=== PATIENT | female | born 1945 | race Caucasian/White ===

== ENCOUNTER 2020-12-12 11:38 | Emergency (ER) | payer MEDICARE ==
[2020-12-12 11:53] VITALS: BP 122/72; PULSE 66; O2SAT 99
--- NOTE | 2020-12-12 12:00 | ERPHSYRPT ---
- History of Present Illness Time Seen by Provider: 12/12/20 11:43 Source: patient Exam Limitations: no limitations Patient Subjective Stated Complaint: rash Triage Nursing Assessment: pt to ED c/o itching rash to upper L chest. states she noticed 3-4 dots of red rash on chest, attempted to put skin cancer topical medication on area and it seemed to worsen over few days. first noticed rash about 1 week ago but has gotten worse. denies pain at this time but states area is itching and burning. Physician History: 75 years old female with a history of skin cancers presented in the ER with chief complaint of rash anterior left chest started almost a week ago with few bumps and gradually spreading on the anterior chest, crossing midline to the right. She has been applying topical cancer medication with no relief but actually getting worse. Patient report burning and itching which does help with the applying Benadryl cream. No discharge. No vesicles. No fever or chills reported. Timing/Duration: week(s) (1), gradual onset, worse Quality: burning, itchy Severity: moderate Location: torso Possible Causes: no cause identified Modifying Factors: Improves With: antihistamine Associated Symptoms: rash Allergies/Adverse Reactions: latex Allergy (Intermediate, Verified 12/12/20 11:53) Hives nitrofurantoin macrocrystalline [From Macrodantin] Allergy (Mild, Verified 12/12/20 11:53) Rash Penicillins Allergy (Mild, Verified 12/12/20 11:53) Rash Home Medications: Aspirin 81 gm Chew [Baby Aspirin 81 mg Chew] 81 mg PO DAILY 02/05/14 [History] Benazepril HCl 10 mg [Lotensin 10 MG] 10 mg PO DAILY 02/05/14 [History] Biotin 1 mg PO DAILY 02/05/14 [History] Bupropion HCl 150 mg Sr [Wellbutrin SR 150 MG] 150 mg PO DAILY 02/05/14 [History] Butalb/Acetaminophen/Caffeine [Rgdhfs-Aziowkie-Vdza 50-325-40] 1 each PO UD PRN 02/05/14 [History] Calcium Carbonate/Vitamin D3 [Calcium 1,000 + D3 Caplet] 1 each PO DAILY 02/05/14 [History] Diphenhydramine HCl 25 mg [Benadryl 25 mg Capsule] 25 mg PO HS 02/05/14 [History] Lysine 500 mg PO UD 02/05/14 [History] Magnesium 1,000 mg PO DAILY 02/05/14 [History] Magnesium Chloride 64 mg [Slow-Mag 64 MG] 2 tab PO DAILY 02/05/14 [History] Mycophenolate Sodium [Myfortic] 180 mg PO DAILY 02/05/14 [History] Nebivolol HCl [Bystolic] 10 mg PO DAILY 02/05/14 [History] Omeprazole [Prilosec] 40 mg PO DAILY 02/05/14 [History] Rosuvastatin Calcium [Crestor] 1 tab PO DAILY 02/05/14 [History] Spironolactone 50 mg PO DAILY 02/05/14 [History] Sulfamethoxazole/Trimethoprim [Sulfamethoxazole-Tmp Ds Tablet] 400 mg PO UD [History] Tacrolimus [Prograf] 1 mg PO BID 02/05/14 [History] Zolpidem Tartrate [Ambien] 5 mg PO HS PRN 02/05/14 [History] Hx Tetanus, Diphtheria Vaccination/Date Given: Yes Hx Influenza Vaccination/Date Given: Yes Hx Pneumococcal Vaccination/Date Given: Yes (2010) Immunizations Up to Date: Yes Travel Risk - International Travel Have you traveled outside of the country in past 3 weeks: No - Coronavirus Screening Are you exhibiting any of the following symptoms?: No Close contact with a COVID-19 positive Pt in past 14-21 Days: No - Vaccine Status Have you recieved a Covid-19 vaccination: Yes [employer]: Moderna - Vaccination Dates Date of 2cond Vaccination (if applicable): Aug - Review of Systems Constitutional: No Symptoms Eyes: No Symptoms Ears, Nose, & Throat: No Symptoms Respiratory: No Symptoms Cardiac: No Symptoms Abdominal/Gastrointestinal: No Symptoms Genitourinary Symptoms: No Symptoms Musculoskeletal: No Symptoms Skin: Pruritis, Rash, Skin Lesions Neurological: No Symptoms Psychological: No Symptoms Endocrine: No Symptoms - Past Medical History Pertinent Past Medical History: Yes Neurological History: Migraines ENT History: No Pertinent History Cardiac History: Angina, High Cholesterol, Hypertension Respiratory History: No Pertinent History Endocrine Medical History: No Pertinent History Musculoskeletal History: Fractures, Osteoarthritis GI Medical History: GERD History: Renal Disease Psycho-Social History: Depression Female Reproductive Disorders: No Pertinent History Other Medical History: FX CLAVICLE A CHILD. RIGHT KIDNEY TRANSPLANT 2007 DUE TO POLYCYSTIC DISEASE. SURGERY RIGHT 1ST MCP JOINT D/T OA. CATARACT SX LEFT. skin cancer - Past Surgical History Past Surgical History: Yes Neuro Surgical History: No Pertinent History Cardiac: Cardiac Catheterization Respiratory: No Pertinent History Gastrointestinal: No Pertinent History Genitourinary: Kidney Transplant Musculoskeletal: No Pertinent History, Orthopedic Surgery Female Surgical History: Hysterectomy Other Surgical History: bilateral oopherectomy. right kidney transplant 2006, right hand bone reconstruction at thumb joint - Social History Smoking Status: Former smoker How long have you smoked: 12 years Exposure to second hand smoke: No Drug Use: none Patient Lives Alone: No - Female History Hx Now: No - Nursing Vital Signs Nursing Vital Signs: Initial Vital Signs Temperature 97.2 F 12/12/20 11:45 Pulse Rate 66 12/12/20 11:45 Respiratory Rate 18 12/12/20 11:45 Blood Pressure 122/72 12/12/20 11:45 O2 Sat by Pulse Oximetry 99 12/12/20 11:45 Pain Scale Pain Intensity 0 - Physical Exam General Appearance: no apparent distress, alert Eye Exam: PERRL/EOMI Ears, Nose, Throat Exam: normal ENT inspection Neck Exam: normal inspection, supple, full range of motion Respiratory Exam: normal breath sounds, lungs clear, No chest tenderness Cardiovascular Exam: regular rate/rhythm, normal heart sounds Back Exam: normal inspection Extremity Exam: normal inspection, normal range of motion Neurologic Exam: alert, oriented x 3, cooperative Skin Exam: rash (Multiple confluent bumpy rash with skin break with erythema around. Blanchable on anterior chest more on the left. Warm, nontender.) SpO2 Interpretation: normal SpO2: 99 O2 Delivery: Room Air - Progress Progress: unchanged Progress Note: 12/12/20 11:56 Recommended topical steroid and outpatient follow-up with dermatology. Does not seem herpes zoster infection rash. Counseled pt/family regarding: diagnosis, need for follow-up - Departure Departure Disposition: Home Clinical Impression: Dermatitis Condition: Stable Critical Care Time: No Referrals: MIKI JOLLY [Primary Care Provider] - Follow Up with PCP/3 days Instructions: Dermatitis Additional Instructions: Follow-up with your primary reporting coordinator Dr. Randolph early next week for reevaluation. Return to ER for worsening itching, redness or if have any discharge/fever chills etc. Continue with Benadryl cream as needed. Prescriptions: Fluticasone Propionate [Cutivate] 30 gm TP BID 7 Days #30 cream..g.
== END 2020-12-12 12:15 | disposition home or self-care (01) ==
LOC: ED 11:38
DX: L30.9 Dermatitis, unspecified (principal); Z85.828 Personal history of other malignant neoplasm of skin; I10 Essential (primary) hypertension; Z79.899 Other long term (current) drug therapy
CPT/HCPCS: 99283